=== PATIENT | female | born 1935 | race Caucasian/White ===

== ENCOUNTER 2024-03-16 13:05 | Inpatient (IN) | payer MEDICARE ==
[~2024-03-16] VITALS: Ht 157.5 cm; Wt 63.1 kg
[2024-03-16 13:53] LABS: BASOPHILS % (AUTO) 0.5 % (0.0-2.0); EOSINOPHILS # (AUTO) 0.1 K/uL (0.0-0.7); EOSINOPHILS % (AUTO) 2.1 % (0.0-7.0); HEMATOCRIT 36.1 % (31.2-41.9); HEMOGLOBIN 12.2 g/dL (10.9-14.3); LYMPHOCYTES # (AUTO) 1.2 K/uL (0.8-4.8); LYMPHOCYTES % (AUTO) 38.3 % (20.5-51.5); MEAN CORPUSCULAR HEMOGLOBIN 28.9 uug (24.7-32.8); MEAN CORPUSCULAR HGB CONC 34 g/dL (32.3-35.6); MEAN CORPUSCULAR VOLUME 85.4 fL (75.5-95.3); MONOCYTES # (AUTO) 0.3 K/uL (0.1-1.30); MONOCYTES % (AUTO) 10.2 % (0.0-11.0); NEUTROPHILS # (AUTO) 1.5 K/uL (1.8-8.9); NEUTROPHILS % (AUTO) 48.9 % (38.5-71.5); PLATELET COUNT (AUTO) 204 K/uL (179-408); RED BLOOD CELL COUNT(AUTO) 4.23 MIL/uL (3.63-4.92); RED CELL DISTRIBUTION WIDTH 13.9 % (12.3-17.7); WHITE BLOOD COUNT (AUTO) 3.1 K/uL (3.8-11.8)
[2024-03-16 13:57] LABS: DIFFERENTIAL COMMENT 1
[2024-03-16 14:18] LABS: ALANINE AMINOTRANSFERASE 8 U/L (14-59); ALBUMIN 3.1 g/dL (3.4-5.0); ALKALINE PHOSPHATASE 125 U/L (50-136); ASPARTATE AMINOTRANSFERASE 12 U/L (15-37); BILIRUBIN,DIRECT 0.1 mg/dL (0.0-0.2); BILIRUBIN,TOTAL 0.5 mg/dL (0.2-1.0); CALCIUM 8.9 mg/dL (8.5-10.1); CARBON DIOXIDE 30 mmol/L (21-32); CHLORIDE 105 mmol/L (98-107); CREATININE 0.9 mg/dL (0.6-1.3); GLUCOSE 121 mg/dL (74-106); POTASSIUM 4.3 mmol/L (3.5-5.1); SODIUM SERUM 144 mmol/L (136-145); TOTAL PROTEIN, SERUM 8.3 g/dL (6.4-8.2); UREA NITROGEN, BLOOD 16 mg/dL (7-18)
[2024-03-16 14:21] LABS: *BILIRUBIN,URIN NEGATIVE (NEGATIVE); *BLOOD, URINE NEGATIVE (NEGATIVE); *CLARITY,URINE CLEAR (CLEAR); *COLOR,URINE YELLOW (YELLOW); *KETONES,URINE NEGATIVE (NEGATIVE); *PROTEIN,URINE 1+ (NEGATIVE); *UROBILINOGEN,URINE 0.2 E.U./dl (NORMAL); LEUKOCYTE ESTERASE ,URINE NEGATIVE (NEGATIVE); NITRITE, URINE NEGATIVE (NEGATIVE); UGLUCOSE NEGATIVE (NEGATIVE)
[2024-03-16 14:35] LABS: *AMPHETAMINE, URINE NEGATIVE (NEGATIVE); *BARBITURATE, URINE NEGATIVE (NEGATIVE); *BENZODIAZEPINE, URINE NEGATIVE (NEGATIVE); *CANNABINOID, URINE NEGATIVE (NEGATIVE); *COCCAINE, URINE NEGATIVE (NEGATIVE); *OPIATE, URINE NEGATIVE (NEGATIVE); *PHENCYCLIDINE SCREEN,URINE NEGATIVE (NEGATIVE); FENTANYL, URINE NEGATIVE (NEGATIVE)
[2024-03-16 14:48] LABS: AMMONIA < 10 umol/L (11-32); ETHANOL < 3 MG/DL (0-10)
[2024-03-16 14:52] LABS: ACETAMINOPHEN < 10.0 ug/mL (10-30)
[2024-03-16] MEDS ORDERED: HYDR28CR67 TP (17:33)
[2024-03-16] MEDS ORDERED: CETI-90 PO (17:33)
[2024-03-16] MEDS ORDERED: TRAZ150T75 PO (17:33)
[2024-03-16] MEDS ORDERED: DOCU100T2 PO (17:33)
[2024-03-16] MEDS ORDERED: MELA3CAP2 PO (17:33)
[2024-03-16] MEDS ORDERED: ACET-2154 PO (17:33)
[2024-03-16] MEDS ORDERED: CHOL200010 PO (17:33)
[2024-03-16] MEDS ORDERED: FLUT16SP16 NS (17:33)
[2024-03-16] MEDS ORDERED: QUET50TA PO (17:33)
[2024-03-16] MEDS ORDERED: CRAN200C5 PO (17:33)
[2024-03-16] MEDS ORDERED: SENN8.6T19 PO (17:33)
[2024-03-16] MEDS ORDERED: MUPI15CR TP (17:33)
[2024-03-16] MEDS ORDERED: MEMA10TA PO (17:33)
[2024-03-16] MEDS ORDERED: MAGN100T PO (17:33)
[2024-03-16] MEDS ORDERED: LORA0.5T48 PO (17:33)
[2024-03-16] MEDS ORDERED: ONDANSETRON 4 MG/2 ML VIAL IV PRN (18:00)
[2024-03-16] MEDS ORDERED: Medication Not On Formulary EA (Magnesium Glycinate (Mag Glycinate) 200 MG) PO SCH (18:00)
[2024-03-16] MEDS ORDERED: MORPHINE SULFATE 2 MG/1 ML DISP.SYRIN IVP PRN (18:00)
[2024-03-16] MEDS ORDERED: MAGNESIUM HYDROXIDE 30 ML LIQUID UDC PO PRN (18:00)
[2024-03-16] MEDS ORDERED: Medication Not On Formulary EA (Quetiapine Fumarate (Seroquel) 50 MG) PO SCH (18:00)
[2024-03-16] MEDS ORDERED: ACETAMINOPHEN 325 MG TABLET PO PRN (18:00)
[2024-03-16] MEDS ORDERED: hydrALAZINE HCL 20 MG/1 ML VIAL IV PRN (18:00)
[2024-03-16] MEDS ORDERED: LORAZEPAM 0.5 MG TABLET PO PRN (18:00)
[2024-03-16 19:25] VITALS: BP 185/148; TEMP 98; O2SAT 95
[2024-03-16 20:22] VITALS: BP 175/93; TEMP 99.2; O2SAT 96
[2024-03-16] MEDS: QUETIAPINE FUMARATE 25 MG TABLET PO SCH (20:59)
[2024-03-17 00:13] VITALS: BP 126/82; TEMP 97.4; O2SAT 97
[2024-03-17 04:10] VITALS: BP 143/71; TEMP 97.3
[2024-03-17 06:44] LABS: BASOPHILS % (AUTO) 0.6 % (0.0-2.0); EOSINOPHILS # (AUTO) 0.1 K/uL (0.0-0.7); EOSINOPHILS % (AUTO) 2.4 % (0.0-7.0); HEMATOCRIT 35.3 % (31.2-41.9); HEMOGLOBIN 11.9 g/dL (10.9-14.3); LYMPHOCYTES % (AUTO) 45.9 % (20.5-51.5); MEAN CORPUSCULAR HEMOGLOBIN 28.9 uug (24.7-32.8); MEAN CORPUSCULAR HGB CONC 34 g/dL (32.3-35.6); MEAN CORPUSCULAR VOLUME 85.8 fL (75.5-95.3); MONOCYTES # (AUTO) 0.7 K/uL (0.1-1.30); MONOCYTES % (AUTO) 15.8 % (0.0-11.0); NEUTROPHILS # (AUTO) 1.5 K/uL (1.8-8.9); NEUTROPHILS % (AUTO) 35.3 % (38.5-71.5); PLATELET COUNT (AUTO) 164 K/uL (179-408); RED BLOOD CELL COUNT(AUTO) 4.12 MIL/uL (3.63-4.92); RED CELL DISTRIBUTION WIDTH 14.2 % (12.3-17.7); WHITE BLOOD COUNT (AUTO) 4.4 K/uL (3.8-11.8)
[2024-03-17 07:03] LABS: ALANINE AMINOTRANSFERASE 11 U/L (14-59); ALBUMIN 2.6 g/dL (3.4-5.0); ALKALINE PHOSPHATASE 109 U/L (50-136); ASPARTATE AMINOTRANSFERASE 32 U/L (15-37); BILIRUBIN,TOTAL 0.5 mg/dL (0.2-1.0); CALCIUM 8.6 mg/dL (8.5-10.1); CARBON DIOXIDE 25 mmol/L (21-32); CHLORIDE 106 mmol/L (98-107); CREATININE 0.8 mg/dL (0.6-1.3); GLUCOSE 93 mg/dL (74-106); POTASSIUM 5.1 mmol/L (3.5-5.1); SODIUM SERUM 140 mmol/L (136-145); TOTAL PROTEIN, SERUM 7.3 g/dL (6.4-8.2); UREA NITROGEN, BLOOD 15 mg/dL (7-18)
[2024-03-17 07:22] LABS: DIFFERENTIAL COMMENT 1
[2024-03-17 07:57] VITALS: BP 123/100; TEMP 98.4; O2SAT 94
[2024-03-17] MEDS: MIRALAX 17 GM POWD.PACK PO SCH (08:24)
[2024-03-17] MEDS: DOCUSATE SODIUM 100 MG CAPSULE PO SCH (08:24)
[2024-03-17] MEDS: MEMANTINE HCL 10 MG TABLET PO SCH (08:24)
[2024-03-17] MEDS: HEPARIN SODIUM,PORCINE 5,000 UNITS/ML VIAL SQ SCH (08:29)
[2024-03-17] MEDS: HYDROCORTISONE 1% CREAM 30 GM TUBE TP SCH (09:23)
[2024-03-17 10:48] LABS: LYMPHOCYTES % (MANUAL) 46 % (20-40); NEUTROPHILS % (MANUAL) 36 % (42-75)
[2024-03-17 10:49] LABS: EOSINOPHILS % (MANUAL) 2 % (0-8); MONOCYTES % (MANUAL) 16 % (2-10); PLATELET ESTIMATE DECREASED
[2024-03-17 12:19] VITALS: BP 167/103
[2024-03-17 12:20] VITALS: BP 146/103
[2024-03-17] MEDS ORDERED: MAGNESIUM OXIDE 400 MG TABLET PO SCH (20:00)
== END 2024-03-17 13:30 | DRG 74 ==
LOC: ER 13:05 → TRANSITION 17:12 → TELE3 18:19 → MEDSURG3 03-17 09:54
PROVIDERS: ADMIT Internal Medicine; ATTEND Internal Medicine
DX: G90.89 Other disorders of autonomic nervous system (principal); G93.49 Other encephalopathy; E44.1 Mild protein-calorie malnutrition; F02.84 Dementia in other diseases classified elsewhere, unspecified severity, with anxiety; I67.89 Other cerebrovascular disease; G30.9 Alzheimer's disease, unspecified; E88.09 Other disorders of plasma-protein metabolism, not elsewhere classified; K59.00 Constipation, unspecified; I10 Essential (primary) hypertension; Z88.0 Allergy status to penicillin; Z66 Do not resuscitate; J30.9 Allergic rhinitis, unspecified
CPT/HCPCS: 36415; 70030-TC; 70450; 71045; 83605; 84100; 84484; 85025; 85730; 87040; A4606; A4663; C1758; G0378; G0480; J1644; J7040